=== PATIENT | male | born 1950 | race Caucasian/White ===

== ENCOUNTER 2019-04-28 23:42 | Emergency (ER) | payer MEDICARE ==
[2019-04-29] MEDS ORDERED: Ketorolac Tromethamine 30 MG/ML VIAL ONE (00:24)
[2019-04-29] MEDS ORDERED: Morphine 4 MG/ML VIAL ONE (03:01)
--- NOTE | 2019-04-29 08:07 | RAD ---
Radiograph right hip 2 views: HISTORY: 68-year-old male with sudden onset right hip pain FINDINGS: No fracture or dislocation. No femoral head collapse. Bony hypertrophy of the lateral aspect of the f emoral neck and subcapital region. Mild joint space narrowing centrally. IMPRESSION: No fracture.
--- NOTE | 2019-04-29 08:14 | RAD ---
Radiograph pelvis one view: HISTORY: 68-year-old male with right hip pain FINDINGS: No fracture or dislocation. Pistol handle morphology right femoral head and neck could cause femoral acetabular impingement. Minimal-mild central hip joint space narrowing on right. Left hip unremarkable. Pelvic ring is intact. IMPRESSION: No fracture. See above comments.
== END 2019-04-29 03:30 | disposition home or self-care (01) ==
LOC: ERS 23:42
DX: M54.5 Low back pain (principal); M25.551 Pain in right hip; I25.2 Old myocardial infarction; Z87.442 Personal history of urinary calculi; Z79.899 Other long term (current) drug therapy; X58.XXXA Exposure to other specified factors, initial encounter
CPT/HCPCS: 72170; 96372; J1885; J2270

== ENCOUNTER 2019-07-14 21:31 | Emergency (ER) | payer MEDICARE ==
[2019-07-14 22:01] LABS: #Eosinphils 0.1 thou/uL (0.0-0.7); #Lymphocytes 1.2 thou/uL (1.20-3.40); #Monocytes 0.7 thou/uL (0.11-0.59); #Neutrophils 6.2 thou/uL (1.40-6.50); %Basophils 0.4 % (0.0-1.0); %Eosinophils 1.7 % (0.0-10.0); %Lymphocytes 14.5 % (21.0-51.0); %Monocytes 8.6 % (0.0-10.0); %Neutrophils 74.7 % (42.0-75.0); Mean Corpuscular HGB CONC 32.9 g/dL (32.0-36.0); Mean Corpuscular Hemoglobin 31.6 pg (27.0-31.0); Mean Corpuscular Volume 96.1 fL (78.0-98.0); Mean Platelet Volume 7.8 fL (7.4-10.4); Platelet Count 226 thou/uL (130-400); RBC Distribution Width 12.4 % (11.5-14.5); Red Blood Cell (RBC) Count 4.44 mill/uL (4.70-6.10); White Blood Cell (WBC) Count 8.3 thou/uL (4.8-10.8)
[2019-07-14 22:21] LABS: ALT (SGPT) 19 U/L (8-55); AST (SGOT) 24 U/L (5-34); Albumin 4.2 g/dL (3.4-4.8); Alkaline Phosphatase 91 U/L (40-110); Anion Gap 12 mmol/L (10-20); BUN (Urea Nitrogen) 13 mg/dL (8.4-25.7); Bilirubin, Total 0.6 mg/dL (0.2-1.2); Calc. Creatinine Clearance 0 mL/min (70-130); Carbon Dioxide 25 mmol/L (23-31); Chloride 102 mmol/L (98-107); Estimated GFR-MDRD 80; Globulin 2.8 g/dL (2.4-3.5); Glucose 116 mg/dL (80-115); Potassium 3.6 mmol/L (3.5-5.1); Sodium 135 mmol/L (136-145)
[2019-07-14 23:17] LABS: CK (CPK) 139 U/L (30-200); Lipase Less than 4 U/L (8-78)
[2019-07-14] MEDS ORDERED: Ondansetron PF 4 MG/2 ML Vial ONE (23:34)
[2019-07-14] MEDS ORDERED: Morphine 4 MG/ML VIAL ONE (23:34)
[2019-07-14 23:36] LABS: Bilirubin Negative (Negative); Blood, Urine Negative (Negative); Clarity Clear (Clear); Glucose, Urine (Dipstick) Normal (Negative); Leukocyte Negative Leu/uL (Negative); Nitrite Negative (Negative); Protein, Urine (Dipstick) Negative (Neg-Trace); Urobilinogen Normal mg/dL (Less than 2)
== END 2019-07-15 00:20 | disposition home or self-care (01) ==
LOC: ERS 21:31
DX: T67.5XXA Heat exhaustion, unspecified, initial encounter (principal); T67.2XXA Heat cramp, initial encounter; F41.9 Anxiety disorder, unspecified; Z79.899 Other long term (current) drug therapy
CPT/HCPCS: 36415; 80053; 81003; 82550; 83690; 85025; 93005; 96361; 96374; 96375; J2270; J2405